=== PATIENT | female | born 1950 | race Caucasian/White ===

== ENCOUNTER → 2016-06-29 | Outpatient (CLI) | payer OTHER | END | disposition home or self-care (01) | LOC: GMAL 10:49 | PROVIDERS: ATTEND Family Medicine | DX: D50.8 Other iron deficiency anemias (principal) ==

== ENCOUNTER → 2016-07-15 | Outpatient (CLI) | payer OTHER | END | disposition home or self-care (01) | LOC: GMAL 11:02 | PROVIDERS: ATTEND Family Medicine | DX: N39.0 Urinary tract infection, site not specified (principal); R50.9 Fever, unspecified ==

== ENCOUNTER → 2016-07-29 | Outpatient (CLI) | payer OTHER | END | disposition home or self-care (01) | LOC: GMAL 10:31 | PROVIDERS: ATTEND Family Medicine | DX: D50.8 Other iron deficiency anemias (principal) ==

== ENCOUNTER → 2016-10-06 | Outpatient (CLI) | payer OTHER | END | disposition home or self-care (01) | LOC: GMAL 16:29 | PROVIDERS: ATTEND Family Medicine | DX: D50.8 Other iron deficiency anemias (principal); N39.0 Urinary tract infection, site not specified ==

== ENCOUNTER → 2016-10-12 | Outpatient (CLI) | payer OTHER | END | disposition home or self-care (01) | LOC: GMAL 14:08 | PROVIDERS: ATTEND Family Medicine | DX: N39.0 Urinary tract infection, site not specified (principal) ==

== ENCOUNTER → 2016-11-14 | Outpatient (CLI) | payer OTHER | END | disposition home or self-care (01) | LOC: GMAL 16:30 | PROVIDERS: ATTEND Family Medicine | DX: D50.8 Other iron deficiency anemias (principal) ==

== ENCOUNTER → 2016-12-31 | Outpatient (CLI) | payer OTHER | END | disposition home or self-care (01) | LOC: GMA 13:38 | PROVIDERS: ATTEND Nurse Practitioner Family | DX: R30.0 Dysuria (principal) ==

== ENCOUNTER → 2017-03-06 | Outpatient (CLI) | payer OTHER | END | disposition home or self-care (01) | LOC: GMAL 11:07 | PROVIDERS: ATTEND Family Medicine | DX: D51.3 Other dietary vitamin B12 deficiency anemia (principal); D50.8 Other iron deficiency anemias; E55.9 Vitamin D deficiency, unspecified ==

== ENCOUNTER → 2017-03-20 | Outpatient (CLI) | payer OTHER ==
--- NOTE | 2017-03-24 15:13 | MAM ---
EXAM DESCRIPTION: Screening Mammogram,Bilateral: Digital Mammography CLINICAL HISTORY: 66 years Female SCREENING . No complaints. No family history of breast cancer. Postmenopausal. Taking HRT 5 or more years ago. COMPARISON: 2-D digital screening bilateral study 03/10/2016. Report from prior examination also reviewed. TECHNIQUE: Bilateral CC and MLO projection full-field images, 2-D digital screening mammographic technique. CAD was utilized. FINDINGS: The breast parenchymal density pattern is: Scattered areas of fibroglandular density. No skin thickening or nipple retraction bilateral solitary microcalcifications. Bilateral vascular calcifications. Bilateral axillary lymph nodes. No focal, stellate mass or density, focal asymmetry , and no suspicious microcalcifications bilaterally. Stable mammograms compared to the prior study, taking into account differences in mammographic technique. IMPRESSION: BI-RADS CATEGORY: 2 - BENIGN FINDINGS. FOLLOW UP: Routine digital bilateral screening, one year interval from February 2017. Written communication explaining the IMPRESSION and follow-up, will be mailed to the patient and referring health care provider. According to the [employer], yearly mammograms are recommended starting at age 40 and continuing as long as a woman is in good health. Any breast change noted on a breast self-exam should be reported promptly to the patient's healthcare provider. Breast MRI is recommended for women with an approximately 20-25% or greater lifetime risk of breast cancer, including women with a strong family history of breast or ovarian cancer and women who have been treated for Hodgkin's disease. A negative mammographic report should not delay tissue diagnosis in patients with significant clinical history or physical findings. Extremely dense breast tissue limits the sensitivity of digital mammography. Electronically signed by: Alfie Gtz MD 03/24/2017 3:12 PM CDT
== END | disposition home or self-care (01) ==
LOC: MAMMO 14:44
PROVIDERS: ATTEND Family Medicine
DX: Z12.31 Encounter for screening mammogram for malignant neoplasm of breast (principal)

== ENCOUNTER → 2017-05-23 | Outpatient (CLI) | payer OTHER | END | disposition home or self-care (01) | LOC: GMAJ 18:09 | PROVIDERS: ATTEND Family Medicine | DX: N39.0 Urinary tract infection, site not specified (principal) ==

== ENCOUNTER → 2017-07-17 | Outpatient (CLI) | payer OTHER | LOC: GMAL 10:52 | PROVIDERS: ATTEND Family Medicine | DX: N39.0 Urinary tract infection, site not specified (principal); R53.83 Other fatigue ==

== ENCOUNTER → 2017-08-15 | Outpatient (CLI) | payer OTHER | LOC: GMAL 16:33 | PROVIDERS: ATTEND Family Medicine | DX: I50.9 Heart failure, unspecified (principal) ==

== ENCOUNTER → 2017-09-04 | Outpatient (CLI) | payer OTHER | LOC: GMAL 13:21 | PROVIDERS: ATTEND Family Medicine | DX: D51.3 Other dietary vitamin B12 deficiency anemia (principal) ==

== ENCOUNTER → 2017-10-31 | Outpatient (CLI) | payer OTHER | LOC: GMAL 11:07 | PROVIDERS: ATTEND Family Medicine | DX: N39.0 Urinary tract infection, site not specified (principal) ==

== ENCOUNTER 2018-02-06 03:49 | Emergency (ER) | payer OTHER ==
[2018-02-06 04:14] VITALS: TEMP 98.5; O2SAT 98
[2018-02-06] MEDS ORDERED: ACETAMINOPHEN-CAFF-BUTALBITAL 1 EA TAB PO ONE (04:20)
[2018-02-06] MEDS ORDERED: METOPROLOL TARTRATE 25 MG TAB PO ONE (06:19)
[2018-02-06 06:30] VITALS: BP 171/88
--- NOTE | 2018-02-06 06:32 | ED.PDOC ---
History of Present Illness - General Chief Complaint: Blood Pressure Problem Stated Complaint: high B/P reading at home Time Seen by Provider: 02/06/18 04:12 Source: patient Exam Limitations: no limitations - History of Present Illness Initial Comments: the patient is a 67-year-old female presenting to the emergency room this morning secondary to waking up and checking her blood pressure and finding that it was around 200/110. She reports that her blood pressures have been 40 or 50 points higher than they normally are this past week. She is finishing taking a course of antibiotics for urinary tract infection that has been recurrent. Headache was mild to moderate upon awaking and has improved by her arrival here and her blood pressures are down to the 170s on the systolic end by her arrival here as well. she has no neurological changes. She is alert and oriented. Headache is posterior and bandlike. She does have some tenderness to palpation over the posterior upper paracervical spine muscles. No deformity. She reports good blood sugar control. Timing/Duration: unsure Severity: mild Improving Factors: nothing Worsening Factors: nothing Associated Symptoms: denies symptoms Allergies/Adverse Reactions: Allergies Latex Allergy (Verified 02/06/18 03:59) Ciprofloxacin [From Cipro] Adverse Reaction (Verified 02/06/18 03:59) Clarithromycin [From Biaxin] Adverse Reaction (Verified 02/06/18 03:59) Levofloxacin [From Levaquin] Adverse Reaction (Verified 02/06/18 03:59) Metronidazole Adverse Reaction (Verified 02/06/18 03:59) Morphine Adverse Reaction (Verified 02/06/18 03:59) Sulfa Antibiotics Adverse Reaction (Verified 02/06/18 03:59) Home Medications: Ambulatory Orders Ampicillin [Ampicillin] 02/06/18 Apixaban [Eliquis] 02/06/18 Atorvastatin Calcium [Lipitor] 40 mg PO 02/06/18 Cetirizine HCl [ZyrTEC] 10 mg PO 02/06/18 Chlorpheniramine Maleate [Chlor-Trimeton] 4 mg PO 02/06/18 Cranberry Concentrate 02/06/18 Dapagliflozin Propanediol [Farxiga] 02/06/18 Dulera 200-5 Mcg/Act 02/06/18 Eluxadoline [Viberzi] 75 mg PO 02/06/18 Losartan Potassium [Cozaar] 50 mg PO 02/06/18 Metoprolol Tartrate 25 mg PO BID #60 tab 02/06/18 Nitrofurantoin Macrocrystal [Nitrofurantoin Macrocryst] 100 mg PO 02/06/18 Nitroglycerin [Nitrostat] 0.4 mg SL 02/06/18 Pantoprazole Tablet [Protonix] 02/06/18 Pioglitazone HCl [Actos] 30 mg PO 02/06/18 Viactiv 02/06/18 Vitamin B-12 02/06/18 metFORMIN HCL [Glucophage] 500 mg PO 02/06/18 Review of Systems - Review of Systems Constitutional: States: no symptoms reported EENTM: States: no symptoms reported Respiratory: States: no symptoms reported Cardiology: States: no symptoms reported Gastrointestinal/Abdominal: States: no symptoms reported Genitourinary: States: no symptoms reported Musculoskeletal: States: see HPI Skin: States: no symptoms reported Neurological: States: headache Endocrine: States: no symptoms reported All other Systems: No Change from Baseline Past Medical History (General) - Patient Medical History Hx Seizures: No Hx Stroke: No Hx Dementia: No Hx Asthma: No Hx of COPD: No Hx Cardiac Disorders: Yes - HX. Afib Hx Congestive Heart Failure: Yes Hx Pacemaker: No Hx Hypertension: Yes Hx Thyroid Disease: No Hx Diabetes: Yes Hx Gastroesophageal Reflux: Yes Hx Renal Disease: No Hx Cancer: No Hx of HIV: No Hx Hepatitis C: No Hx MRSA: No Surgical History: cholecystectomy, tonsillectomy, Hysterectomy, other - Vaccination History Hx Tetanus, Diphtheria Vaccination: No Hx Influenza Vaccination: Yes Hx Pneumococcal Vaccination: Yes - Social History Hx Tobacco Use: No Family Medical History - Family History Mother Family History: Unknown Physical Exam - Physical Exam General Appearance: Alert, Comfortable, No apparent distress Eye Exam: bilateral normal Ears, Nose, Throat: hearing grossly normal, normal ENT inspection, normal pharynx Neck: full range of motion, supple Respiratory: lungs clear, normal breath sounds, no respiratory distress, no accessory muscle use Cardiovascular/Chest: normal peripheral pulses, regular rate, rhythm, no edema Peripheral Pulses: radial,right: 2+, radial,left: 2+ Gastrointestinal/Abdominal: non tender, soft Rectal Exam: deferred Back Exam: normal inspection, no CVA tenderness, no vertebral tenderness Extremity: normal range of motion, non-tender, normal inspection, no pedal edema 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, no motor/sensory deficits, alert, normal mood/affect, oriented x 3 Skin Exam: normal color Comments: Vital Signs - 24 hr 02/06/18 02/06/18 02/06/18 03:56 04:30 05:00 Temperature 98.5 F Pulse Rate [ 85 76 75 monitor] Respiratory 18 Rate Blood Pressure 159/96 180/81 177/88 [Left Arm] O2 Sat by Pulse 98 Oximetry 02/06/18 02/06/18 02/06/18 05:39 05:57 06:29 Temperature Pulse Rate [ 74 74 69 monitor] Respiratory 20 Rate Blood Pressure 163/98 171/91 171/88 [Left Arm] O2 Sat by Pulse Oximetry Progress - Progress Progress: 02/06/18 06:32 the patient is 67-year-old female presenting with uncontrolled hypertension and a mild associated headache. No neurological changes. The patient did receive a dose of Fioricet and headache is improving. Urinalysis shows no definitive infection however culture will be done. She needs to complete her course of antibiotics for the urinary tract infection. She needs to monitor blood sugars. For the hypertension the patient is going to be started on metoprolol 25 mg twice daily. If her blood pressures are getting too low then this can be broken in half. She does need to contact her primary care doctor's office to let them know the changes that are being made. ER warnings were given for any worsening. If she worsens in any significant way then additional workup including other lab and imaging would be warranted. - Results/Orders Results/Orders: Laboratory Results - last 24 hr 02/06/18 04:23 Urine Color Yellow Urine Appearance Clear Urine pH 5.5 Ur Specific [place] 1.015 Urine Protein Negative Urine Glucose (UA) 500 H Urine Ketones Negative Urine Blood Negative Urine Nitrite Negative Urine Bilirubin Negative Urine Urobilinogen 0.2 Ur Leukocyte Esterase Negative Urine RBC 1-3 Urine WBC 3-5 H Ur Epithelial Cells 5-10 Urine Bacteria Rare Departure - Departure Clinical Impression: Chronic hypertension, Moderate hypertension Headache Qualifiers: Headache type: unspecified Headache chronicity pattern: acute headache Intractability: not intractable Qualified Code(s): R51 - Headache Disposition: Discharge to Home or Self Care Condition: Fair Departure Forms: ED Discharge - Pt. Copy, Patient Portal Self Enrollment Diet: diabetic diet Activity: increase activity as tolerated Referrals: Jacobo Burton III, MD [Primary Care Provider] - 1-5 Days Prescriptions: Metoprolol Tartrate 25 mg PO BID #60 tab Home Medications: Ambulatory Orders Ampicillin [Ampicillin] 02/06/18 Apixaban [Eliquis] 02/06/18 Atorvastatin Calcium [Lipitor] 40 mg PO 02/06/18 Cetirizine HCl [ZyrTEC] 10 mg PO 02/06/18 Chlorpheniramine Maleate [Chlor-Trimeton] 4 mg PO 02/06/18 Cranberry Concentrate 02/06/18 Dapagliflozin Propanediol [Farxiga] 02/06/18 Dulera 200-5 Mcg/Act 02/06/18 Eluxadoline [Viberzi] 75 mg PO 02/06/18 Losartan Potassium [Cozaar] 50 mg PO 02/06/18 Metoprolol Tartrate 25 mg PO BID #60 tab 02/06/18 Nitrofurantoin Macrocrystal [Nitrofurantoin Macrocryst] 100 mg PO 02/06/18 Nitroglycerin [Nitrostat] 0.4 mg SL 02/06/18 Pantoprazole Tablet [Protonix] 02/06/18 Pioglitazone HCl [Actos] 30 mg PO 02/06/18 Viactiv 02/06/18 Vitamin B-12 02/06/18 metFORMIN HCL [Glucophage] 500 mg PO 02/06/18 Additional Instructions: the patient is 67-year-old female presenting with uncontrolled hypertension and a mild associated headache. No neurological changes. The patient did receive a dose of Fioricet and headache is improving. Urinalysis shows no definitive infection however culture will be done. She needs to complete her course of antibiotics for the urinary tract infection. She needs to monitor blood sugars. For the hypertension the patient is going to be started on metoprolol 25 mg twice daily. If her blood pressures are getting too low then this can be broken in half. She does need to contact her primary care doctor's office to let them know the changes that are being made. ER warnings were given for any worsening. If she worsens in any significant way then additional workup including other lab and imaging would be warranted.
== END 2018-02-06 06:44 | disposition home or self-care (01) ==
LOC: ER 03:49
DX: I11.0 Hypertensive heart disease with heart failure (principal); R51 Headache; I50.9 Heart failure, unspecified; I48.91 Unspecified atrial fibrillation; K21.9 Gastro-esophageal reflux disease without esophagitis; Z79.899 Other long term (current) drug therapy; Z79.84 Long term (current) use of oral hypoglycemic drugs

== ENCOUNTER → 2018-02-12 | Outpatient (CLI) | payer OTHER | LOC: GMAL 14:52 | PROVIDERS: ATTEND Family Medicine | DX: N39.0 Urinary tract infection, site not specified (principal) ==

== ENCOUNTER → 2018-02-20 | Outpatient (CLI) | payer OTHER | LOC: GMAL 10:53 | PROVIDERS: ATTEND Family Medicine | DX: N39.0 Urinary tract infection, site not specified (principal) ==

== ENCOUNTER → 2018-03-02 | Outpatient (CLI) | payer OTHER | LOC: GMAL 10:42 | PROVIDERS: ATTEND Family Medicine | DX: N39.0 Urinary tract infection, site not specified (principal) ==

== ENCOUNTER → 2018-04-04 | Outpatient (CLI) | payer OTHER ==
--- NOTE | 2018-04-04 15:25 | CT ---
EXAM DESCRIPTION: Chest w/Contrast : Computed Tomography. CLINICAL HISTORY: J98.4 COMPARISON: Report from prior CT scan chest 11/26/2017 at outside imaging facility. TECHNIQUE: Spiral-axial scans at 5 x 5 mm intervals through the lungs and thorax without IV contrast. 2.5 x 5 mm lung algorithm axial reconstructions. Coronal and sagittal 2.0 Mm reconstructions. No adverse reactions. Total Exam DLP: 508.18 mGy-cm. This exam was performed according to our departmental dose-optimization program which includes automated exposure control, adjustment of the mA and/or kV according to patient size and/or use of iterative reconstruction technique; to reduce radiation dose to as low as reasonably achievable (ALARA). Nodule measurements under 10 mm are given as mean value of 3 axes diameters. FINDINGS: Lungs and large airways: Peripheral groundglass densities in the left upper lobe and left lower lobe. Minimal peripheral tree-in-bud formation also seen. Bilateral view subpleural solid nodules 3 mm in diameter or less. One can be seen in the inferior lingula on lung window axial images 67. Small solid nodule in the posterior right middle lobe adjacent to the right major fissure on lung window axial image 62. Small solid nodule in the subpleural left lower lobe superior segment on axial lung window image 69. Small solid nodule more inferiorly and laterally on image 73. Minimal bilateral perihilar peribronchial wall cuffing. No large abnormal nodules masses. Pleural spaces: Small bilateral focal areas of pleural thickening. No effusion bilaterally or pneumothorax. Mediastinum and [place]: Small nodes in the mediastinum and hilum. No large soft tissue masses. Great vessels and Heart: Multiple coronary artery calcifications and stents. Atherosclerotic calcifications in the aortic arch and descending thoracic aorta also in the proximal brachiocephalic vessels. Soft tissues of neck base, axillae, and chest wall: Small lymph nodes in the axilla. Loop recorder medial left breast to the left of midline. Sternotomy wires. Homogeneous enhancement of the thyroid gland. Upper abdomen: Atherosclerotic calcifications of the abdominal aorta. No free fluid or free air in the peritoneum. Atherosclerotic calcifications in the upper abdominal arteries like the splenic artery. Small pancreas. Surgical clips gallbladder fossa. Normal size and enhancement of the spleen and adrenal glands. Osseous structures: Sternotomy. Multiple levels of thoracic spondylosis. Dextroscoliosis midthoracic spine. IMPRESSION: 1. Peripheral interstitial process in the lungs with combination of groundglass and tree-in-bud densities more prevalent in the anterior left upper lobe lateral left lower lobe base of the right upper lobe. These are associated with solid nodules 3 mm or less in diameter. Consider optional CT follow-up in 12 month interval. [facility] Best Practice recommendations are based upon 2017 Fleischner Society guidelines for multiple solid pulmonary nodules. Please see below.* 2. Small mediastinal nodes. Prior sternotomy. Coronary artery disease and atherosclerotic disease of the aorta and major branch vessels. *2017 Fleischner Society Recommendations for Multiple Solid Lung Nodules Follow-Up base on size (average of long- and short-axis diameters). Use most suspicious nodule for followup. Nodule Size <6 mm Low-Risk Patient: No routine follow-up Nodule Size <6 mm High-Risk Patient: Optional CT at 12 months Electronically signed by: Alfie Gtz MD 04/04/2018 3:24 PM [facility]
--- NOTE | 2018-04-05 15:54 | MAM ---
EXAM DESCRIPTION: 3D Screening BILATERAL : Digital Mammography. CLINICAL HISTORY: 67 years Female ANNUAL SCREENING . No complaints. No personal or family history of breast cancer. Childbirth. Hysterectomy 42 years ago. HRT 5 or more years ago.. Lifetime risk of developing breast cancer (Tyrer-Cuzick model)(%): 5.2. COMPARISON: 2-D digital screening bilateral mammography 03/20/2017. TECHNIQUE: Bilateral CC and MLO projection full-field images, digital tomosynthesis mammographic technique. Bilateral digital 2-D full-field MLO images. CAD not available for tomosynthesis or 2-D images. FINDINGS: The breast parenchymal density pattern is: Scattered areas of fibroglandular density. No skin thickening or nipple retraction. Bilateral microcalcifications. Right axillary lymph nodes. Lymph node in the left axillary tail. Fibroglandular tissues in the right breast are slightly larger region within the left breast.. No new focal, stellate mass or density, focal asymmetry , and no suspicious microcalcifications bilaterally. Stable mammograms compared to prior study. Taking into account, differences in mammographic technique. IMPRESSION: Benign exam. BIRAD CATEGORY: 2 BENIGN FINDINGS. RECOMMENDATIONS: FOLLOW UP: Routine digital bilateral mammographic screening, one year interval from March 2018. Written communication explaining the IMPRESSION and follow-up, will be mailed to the patient and referring health care provider. According to the [employer], yearly mammograms are recommended starting at age 40 and continuing as long as a woman is in good health. Any breast change noted on a breast self-exam should be reported promptly to the patient's healthcare provider. Breast MRI is recommended for women with an approximately 20-25% or greater lifetime risk of breast cancer, including women with a strong family history of breast or ovarian cancer and women who have been treated for Hodgkin's disease. A negative mammographic report should not delay tissue diagnosis in patients with significant clinical history or physical findings. Extremely dense breast tissue limits the sensitivity of digital mammography. Electronically signed by: Alfie Gtz MD 04/05/2018 3:53 PM [facility]
== END ==
LOC: CT 08:17
PROVIDERS: ATTEND Family Medicine
DX: Z12.31 Encounter for screening mammogram for malignant neoplasm of breast (principal); J98.4 Other disorders of lung

== ENCOUNTER → 2018-05-09 | Outpatient (CLI) | payer OTHER | LOC: GMAL 12:48 | PROVIDERS: ATTEND Family Medicine | DX: D50.8 Other iron deficiency anemias (principal) ==

== ENCOUNTER → 2018-09-21 | Outpatient (CLI) | payer OTHER ==
--- NOTE | 2018-09-21 16:48 | MRI ---
EXAM DESCRIPTION: Cervical Spine: MRI. CLINICAL HISTORY: 68 years Female NECK PAIN COMPARISON: Cervical TECHNIQUE: Multiplanar, high-field MRI, multiple sequences, non-contrast Cervical spine. FINDINGS: C3-C4: Disc desiccation and posterior disc space decreased. Minimal anterior bulge. Posterior bulge not abutting the cord. Minimal hypertrophy of the posterior ligaments. Uncinate spur left and facet arthrosis resulting in mild neural foraminal stenosis. Right foramen is patent. Right facet joint unremarkable. C4-C5: Disc desiccation posterior disc space loss. Small posterior bulge with endplate spurs. Right uncinate spur with mild narrowing of the neural foramen. Facet joints are unremarkable. Thickening of the posterior ligaments with mild canal narrowing. C5-C6: Disc desiccation and diffuse disc space loss. Posterior broad-based disc bulge with endplate spurs abutting the cord. Bilateral uncinate spurs with facet joints unremarkable. Thickening of the posterior ligaments. Moderate neural foraminal narrowing and mild canal narrowing. C6-C7: Disc desiccation posterior disc space loss. Posterior right paracentral bulge of the disc and spurs. Mild narrowing of the right side of the canal. Mild bilateral neural foraminal narrowing. Facet joints are unremarkable. C7-T1: Trace anterolisthesis with desiccation of the disc with disc space preserved. No significant canal or neural foraminal narrowing. T1-T2: 2 mm grade 1 anterolisthesis with disc desiccation posterior disc bulge abutting the cord. Mild canal narrowing. Spondylosis on the right side with disc spur complex narrowing the neural foramen. Left neuroforamen is patent. Normal signal in the C2-3 disc with no bulging. Disc spaces preserved. Canal and neural foramina are patent. Facet joints unremarkable. Spinal alignment anterolisthesis as noted above. No cord compression or cord edema. Atlantoaxial joint : Moderate arthrosis, no significant canal or foramen magnum narrowing.. Base of the cerebellar tonsils is above the foramen magnum. Paravertebral soft tissues unremarkable. Vertebral bodies are not compressed at any level. Normal marrow signal in the remaining vertebral bodies and the posterior elements. IMPRESSION: 1. C3-C4 left uncinate spur and facet hypertrophic arthrosis creating mild left neural foraminal stenosis. Correlate for left C4 radiculopathy. 2. No significant disc bulging at any level with no canal stenosis. Anterolisthesis at C7-T1 and T1-T2. Unknown degree of right neural foraminal narrowing at T1-T2 due to right side spondylosis. If symptoms are present, consider MRI scan of the thoracic spine. 3. Posterior broad-based disc bulge at C5-6 with endplate spurs abutting the cord but no significant cord impingement or canal stenosis.. Electronically signed by: Alfie Gtz MD 09/21/2018 4:46 PM CDT
== END ==
LOC: MRI 10:53
PROVIDERS: ATTEND Nurse Practitioner Family
DX: M46.02 Spinal enthesopathy, cervical region (principal); M50.022 Cervical disc disorder at C5-C6 level with myelopathy

== ENCOUNTER → 2018-10-29 | Outpatient (CLI) | payer OTHER | LOC: GMAL 11:27 | PROVIDERS: ATTEND Family Medicine | DX: D50.8 Other iron deficiency anemias (principal); I10 Essential (primary) hypertension; E11.9 Type 2 diabetes mellitus without complications; E78.49 Other hyperlipidemia ==

== ENCOUNTER → 2019-03-14 | Outpatient (CLI) | payer OTHER ==
--- NOTE | 2019-03-15 09:17 | RAD ---
EXAM DESCRIPTION: Lumbar Spine,Flex/Ext CLINICAL HISTORY: 68 years Female, SPONDYLOLISTHESIS COMPARISON: August 01, 2006 Findings: Rib-bearing vertebral bodies. There is 7 mm anterolisthesis L3 on L4 with flexion and extension. There is 6 mm anterolisthesis L4 on L5 with flexion and extension. No abnormal translational motion. No acute fracture or subluxation. Multilevel lumbar spondylosis most pronounced at L5/S1 with marked disc space narrowing, endplate degenerative change and facet hypertrophy. Cholecystectomy clips. Atherosclerotic plaque in the abdominal aorta. IMPRESSION: Multilevel lumbar spondylolisthesis. No evidence of abnormal translational motion. Electronically signed by: Dakota Dhaliwal MD 03/15/2019 9:15 AM CDT
== END ==
LOC: RAD 13:25
PROVIDERS: ATTEND Psychiatry & Neurology Neurology
DX: M43.16 Spondylolisthesis, lumbar region (principal)

== ENCOUNTER → 2019-05-02 | Outpatient (CLI) | payer OTHER ==
--- NOTE | 2019-05-02 15:15 | MRI ---
EXAM DESCRIPTION: Lumbar Spine w/o Contrast : Magnetic Resonance Imaging. CLINICAL HISTORY: SPONDYLOSIS LUMBAR IDIOPATHIC PROGRESSIVE NEUROPATHY COMPARISON: LUMBAR TECHNIQUE: Multiplanar, multiple standard sequences, non contrast MRI, lumbar spine. FINDINGS: L5-S1: The disc is well visualized on axial T2 series 501, image 3. Disc desiccated with minimal disc space loss. Trace posterior midline bulge. Bilateral shortened pedicles. Hypertrophic facet arthrosis and ligament thickening posteriorly more on the right. Mild canal narrowing. Bilateral mild foraminal narrowing. Unchanged from the prior study. Tarlov cyst on the right at S2-S3 and S1- S2. L4-L5: Disc space preserved with disc desiccation. No posterior bulging. Trace anterolisthesis. Bilateral degenerative hypertrophy of the facet joints and ligaments. Mild canal narrowing. Bilateral foramina are patent. Stable since the prior study. L3-L4: Disc desiccation posterior disc bulge. Anterior endplate reactive changes. Posterior broad-based bulge with hyperintense T2 weighted annular fissure. Posterior decompression with bilateral laminectomies unchanged. Canal is patent. Mild to moderate hypertrophic degenerative facet joints and thickened ligaments. Mild left foraminal narrowing and moderate right foraminal narrowing. This is progressed since the prior study. Fluid collections abutting the posterior facet joints bilaterally. Only posterior to the right facet joint on the prior study. L2-L3: Minimal disc space loss with disc desiccation. Previous disc herniation partially resected. Anterior mild to moderate endplate reactive changes also to the right of midline in the L3 superior endplate. Posterior midline hyperintense T2 annular fissure in the disc margin. Posterior bilateral laminectomies and decompression; new since the prior study with canal stenosis no longer present. Bilateral moderate degenerative hypertrophy of the facet joints and ligaments with canal patent. Disc bulge and hypertrophic facet bulge into the right foramen which is nearly stenotic. Mild narrowing on the left foramen. Both foramina stable since the prior study. L1-L2: Unremarkable. T12-L1: Unremarkable. Conus terminates posterior to the L1 vertebral body. L1-L4 levoscoliosis. Paravertebral soft tissues paraspinal muscle atrophy.. Distal cord normal signal and caliber. Normal marrow signal in the remaining vertebral bodies and the posterior elements. Vertebral bodies are not compressed at any level. IMPRESSION: 1. Multiple levels of disc desiccation and bulging. Multiple levels of bilateral degenerative hypertrophy of the facet joints and ligaments. Posterior decompression L3-4 and L2-3; L2-3 performed since the prior study. Also previous L2-3 disc herniation partially resected. 2. Multifactorial mild left foraminal narrowing and moderate right foraminal narrowing at L3-L4 has progressed since the prior study. Synovial cyst posterior to the left facet is new since the prior study. Stable annular fissure in the posterior midline disc. 3. Posterior midline annular fissure in the L2-L3 disc. Near stenosis of the right foramen due to disc bulge and facet hypertrophy stable since the prior study. Electronically signed by: Alfie Gtz MD 05/02/2019 3:13 PM [facility]
== END ==
LOC: MRI 08:40
PROVIDERS: ATTEND Psychiatry & Neurology Neurology
DX: G60.3 Idiopathic progressive neuropathy (principal); M51.16 Intervertebral disc disorders with radiculopathy, lumbar region; M43.16 Spondylolisthesis, lumbar region; M48.8X6 Other specified spondylopathies, lumbar region

== ENCOUNTER → 2019-05-10 | Outpatient (CLI) | payer OTHER ==
--- NOTE | 2019-05-10 16:34 | MAM ---
EXAM DESCRIPTION: 3D Screening BILATERAL : Digital Mammography. CLINICAL HISTORY: 68 years Female ANNUAL SCREENING . No complaints. No personal or family history of breast cancer. Menarche age 9. Childbirth age 20. Hysterectomy age 25. HRT 5 or more years ago. Lifetime risk of developing breast cancer (Tyrer-Cuzick model)(%): 5.0. COMPARISON: Bilateral screening digital breast tomosynthesis March 2018. 2-D digital screening bilateral mammography February 2017. TECHNIQUE: Bilateral CC and MLO projection full-field images, digital tomosynthesis mammographic technique. Bilateral digital 2-D full-field MLO images. CAD not available for tomosynthesis or 2-D images. FINDINGS: The breast parenchymal density pattern is: Heterogeneously dense breast tissue, which may obscure small masses. No skin thickening or nipple retraction. Bilateral microcalcifications and larger calcifications which are solitary. Bilateral axillary lymph nodes. Wireless pacemaker partially visualized with the inferior left pectoral muscle on the left MLO image. No new focal, stellate mass or density, focal asymmetry , and no suspicious microcalcifications bilaterally. Stable mammograms compared to prior study. IMPRESSION: Benign exam. BIRAD CATEGORY: 2 BENIGN FINDINGS. RECOMMENDATIONS: FOLLOW UP: Routine digital bilateral mammographic screening, one year interval from April 2019. Written communication explaining the IMPRESSION and follow-up, will be mailed to the patient and referring health care provider. According to the [employer], yearly mammograms are recommended starting at age 40 and continuing as long as a woman is in good health. Any breast change noted on a breast self-exam should be reported promptly to the patient's healthcare provider. Breast MRI is recommended for women with an approximately 20-25% or greater lifetime risk of breast cancer, including women with a strong family history of breast or ovarian cancer and women who have been treated for Hodgkin's disease. A negative mammographic report should not delay tissue diagnosis in patients with significant clinical history or physical findings. Extremely dense breast tissue limits the sensitivity of digital mammography. Electronically signed by: Alfie Gtz MD 05/10/2019 4:32 PM [employer]
== END ==
LOC: MAMMO 09:00
PROVIDERS: ATTEND Family Medicine
DX: Z12.31 Encounter for screening mammogram for malignant neoplasm of breast (principal); D51.3 Other dietary vitamin B12 deficiency anemia; R53.83 Other fatigue; E55.9 Vitamin D deficiency, unspecified; I10 Essential (primary) hypertension; E11.9 Type 2 diabetes mellitus without complications; E78.49 Other hyperlipidemia

== ENCOUNTER → 2019-06-19 | Outpatient (CLI) | payer OTHER ==
--- NOTE | 2019-06-20 10:47 | CT ---
EXAM DESCRIPTION: Chest w/o Contrast CLINICAL HISTORY: 68 years Female, ABNORMAL CHEST TOMOGRAPHY TECHNIQUE: This exam was performed according to our departmental dose-optimization program, which includes automated exposure control, adjustment of the mA and/or kV according to patient size and/or use of iterative reconstruction technique. COMPARISON: 04/04/2018 FINDINGS: The thyroid gland is unremarkable. No axillary adenopathy identified normal caliber thoracic aorta. Median sternotomy/CABG. Coronary artery and aortic valvular calcifications. No pericardial effusion. No evidence of acute process in the visualized upper abdomen. No mediastinal adenopathy. No pneumothorax. No pleural effusion. Implanted loop recorder. Small scattered calcified granulomas. No focal consolidation. No new pulmonary nodule identified. All of the previously identified pulmonary nodules are either calcified (benign) or stable. Long-term stability indicates a benign etiology. Therefore no suspicious pulmonary nodule is identified. Similar chronic peripheral interstitial fibrosis. No acute or suspicious osseous abnormality. Scattered degenerative changes present. IMPRESSION: No evidence of acute process in the chest. No suspicious pulmonary nodule or focal consolidation. Electronically signed by: Dakota Dhaliwal MD 06/20/2019 10:46 AM [facility]
== END ==
LOC: CT 08:17
PROVIDERS: ATTEND Internal Medicine
DX: R93.89 Abnormal findings on diagnostic imaging of other specified body structures (principal)

== ENCOUNTER → 2020-05-04 | Outpatient (CLI) | payer OTHER | LOC: GMAL 14:18 | PROVIDERS: ATTEND Family Medicine | DX: D51.3 Other dietary vitamin B12 deficiency anemia (principal); E55.9 Vitamin D deficiency, unspecified; R53.83 Other fatigue; I10 Essential (primary) hypertension; E11.9 Type 2 diabetes mellitus without complications; E78.49 Other hyperlipidemia ==

== ENCOUNTER → 2020-05-18 | Outpatient (CLI) | payer OTHER ==
--- NOTE | 2020-05-21 10:49 | MAM ---
EXAM DESCRIPTION: 3D Screening BILATERAL : Digital Mammography. CLINICAL HISTORY: 69 years Female SCREENING . No complaints. No personal or family history of breast cancer. Menarche age 9 childbirth age 20. Menopause age unknown. HRT fibroma years ago.. Lifetime risk of developing breast cancer (Tyrer-Cuzick model)(%): 4.7. COMPARISON: Bilateral screening digital breast tomosynthesis April 2019 and March 2018 TECHNIQUE: Bilateral CC and MLO projection full-field images, digital tomosynthesis mammographic technique. Bilateral digital 2-D full-field MLO images. CAD available for 2-D images. FINDINGS: The breast parenchymal density pattern is: Scattered areas of fibroglandular density. Solitary microcalcifications. Axillary lymph nodes. Solitary coarse calcifications. A loop recorder is overlying the inferior left pectoral muscle on the MLO images, also seen on the prior scan. No skin thickening or nipple retraction No new focal, stellate mass or density, focal asymmetry , and no suspicious microcalcifications bilaterally. Stable mammograms compared to prior study. IMPRESSION: Benign exam. BIRAD CATEGORY: 2 BENIGN FINDINGS. RECOMMENDATIONS: FOLLOW UP: Routine digital bilateral mammographic screening, one year interval from April 2020. Written communication explaining the IMPRESSION and follow-up, will be mailed to the patient and referring health care provider. According to the [employer], yearly mammograms are recommended starting at age 40 and continuing as long as a woman is in good health. Any breast change noted on a breast self-exam should be reported promptly to the patient's healthcare provider. Breast MRI is recommended for women with an approximately 20-25% or greater lifetime risk of breast cancer, including women with a strong family history of breast or ovarian cancer and women who have been treated for Hodgkin's disease. A negative mammographic report should not delay tissue diagnosis in patients with significant clinical history or physical findings. Extremely dense breast tissue limits the sensitivity of digital mammography. Electronically signed by: Alfie Gtz MD 05/21/2020 10:47 AM [facility]
== END ==
LOC: MAMMO 11:26
PROVIDERS: ATTEND Family Medicine
DX: Z12.31 Encounter for screening mammogram for malignant neoplasm of breast (principal)

== ENCOUNTER → 2020-05-20 | Outpatient (CLI) | payer OTHER ==
--- NOTE | 2020-05-21 09:48 | CT ---
EXAM DESCRIPTION: Chest w/o Contrast CLINICAL HISTORY: PULMONARY FIBROSIS COMPARISON: June 19, 2019 TECHNIQUE: Noncontrast transaxial CT images of the chest are obtained. This exam was performed according to our departmental dose-optimization program, which includes automated exposure control, adjustment of the mA and/or kV according to patient size and/or use of iterative reconstruction technique . FINDINGS: The thyroid gland is unremarkable. No axillary adenopathy identified. Normal caliber thoracic aorta. Median sternotomy/CABG. Coronary artery and aortic valvular calcifications. No pericardial effusion. No evidence of acute process in the visualized upper abdomen. No mediastinal adenopathy. No pneumothorax. No pleural effusion. Implanted loop recorder. Small scattered calcified granulomas. No focal consolidation. No new pulmonary nodule identified. All of the previously identified pulmonary nodules are either calcified (benign) or stable. Long-term stability indicates a benign etiology. Therefore no suspicious pulmonary nodule is identified. Chronic peripheral interstitial fibrosis is mildly more prominent in the periphery of the anterior left upper lobe when compared to prior examinations. No acute or suspicious osseous abnormality. Scattered degenerative changes present. IMPRESSION: No evidence of acute process in the chest. No suspicious pulmonary nodule or focal consolidation. Interstitial fibrotic changes are mildly worsened compared to previous exam in the left upper lobe. Electronically signed by: Braulio Valle MD 05/21/2020 9:47 AM [employer]
== END ==
LOC: CT 09:55
PROVIDERS: ATTEND Family Medicine
DX: J84.112 Idiopathic pulmonary fibrosis (principal)